=== PATIENT | female | born 1950 | race Caucasian/White ===

== ENCOUNTER 2018-09-24 11:09 | Emergency (ER) | payer OTHER ==
[2018-09-24 11:24] VITALS: TEMP 98.6
[2018-09-24 12:04] VITALS: BP 141/86; O2SAT 97
--- NOTE | 2018-09-24 12:12 | ED.PDOC ---
History of Present Illness - General Chief Complaint: Blood Pressure Problem Stated Complaint: elevated blood pressure (154/85) Time Seen by Provider: 09/24/18 11:22 Source: patient Exam Limitations: no limitations - History of Present Illness Initial Comments: the patient is a 68-year-old female presenting to the emergency room secondary to several symptoms which are probably mostly worsened by her recent anxiety. The patient woke up with a mild headache. She has had increased anxiety recently since she has just moved to town. She took some Tylenol and the headache is gone. However the time of the headache she did check her blood pressure and it was moderately elevated with systolics in the 150s. Initially she did have some reflux this morning while drinking her coffee. She does have known reflux issues but has not been on any medications for it for a while. She is not having any symptoms currently. The patient is obviously anxious. Blood pressures here are fairly normal. Headache is gone and reflux symptoms are gone. Timing/Duration: unsure Severity: mild Improving Factors: nothing Worsening Factors: nothing Associated Symptoms: other Allergies/Adverse Reactions: Allergies NO KNOWN ALLERGY Allergy (Verified 09/24/18 11:18) Home Medications: Ambulatory Orders Acetaminophen [Acetaminophen ER] 650 mg PO DAILY 09/24/18 Aspirin [Aspirin EC Low Dose] 81 mg PO DAILY 09/24/18 Atorvastatin Calcium 40 mg PO BEDTIME 09/24/18 Famotidine [Pepcid Tab] 20 mg PO BID #60 tab 09/24/18 Levothyroxine Sodium 112 mcg PO DAILY 09/24/18 Lisinopril & Hydrochlorothiazi [Lisinopril/Hctz 20-12.5 mg] 1 tab PO DAILY 09/24 Metoprolol Tartrate 50 mg PO DAILY 09/24/18 Review of Systems - Review of Systems Constitutional: States: no symptoms reported EENTM: States: no symptoms reported Respiratory: States: no symptoms reported Cardiology: States: no symptoms reported Gastrointestinal/Abdominal: States: see HPI Genitourinary: States: no symptoms reported Musculoskeletal: States: no symptoms reported Skin: States: no symptoms reported Neurological: States: anxiety, headache Endocrine: States: no symptoms reported All other Systems: No Change from Baseline Past Medical History (General) - Patient Medical History Hx Stroke: No Hx Cardiac Disorders: Yes Hx Congestive Heart Failure: No Hx Hypertension: Yes Hx Thyroid Disease: Yes Hx Diabetes: No Surgical History: appendectomy, cholecystectomy Family Medical History - Family History Mother Family History: No Known Physical Exam - Physical Exam General Appearance: Alert, Anxious, No apparent distress Eye Exam: bilateral normal Ears, Nose, Throat: hearing grossly normal, normal ENT inspection, normal pharynx Neck: full range of motion, supple Respiratory: lungs clear, normal breath sounds, no respiratory distress, no accessory muscle use Cardiovascular/Chest: normal peripheral pulses, regular rate, rhythm, no edema Peripheral Pulses: radial,right: 2+, radial,left: 2+, dorsalis pedis,right: 2+, dorsalis pedis,left: 2+ Gastrointestinal/Abdominal: non tender, soft Rectal Exam: deferred Back Exam: normal inspection, no CVA tenderness Extremity: normal range of motion, non-tender, normal inspection, no pedal edema , normal capillary refill 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 Blood pressures have largely normalized. Headache has dissipated after her Tylenol dosing. I'm going to place the patient on Pepcid twice daily for the next month for her gastritis issues. The patient is experiencing some mild increased anxiety related to a recent move. I would recommend that she get set up with Dr. Tom so that she has a primary care doctor here in town that can address her longer-term medical issues. ER warnings were given. Departure - Departure Clinical Impression: Anxiety, generalized, Tension headache Gastroesophageal reflux disease Qualifiers: Esophagitis presence: with esophagitis Qualified Code(s): K21.0 - Gastro- esophageal reflux disease with esophagitis Disposition: Discharge to Home or Self Care Condition: Fair Departure Forms: ED Discharge - Pt. Copy, Patient Portal Self Enrollment Instructions: DI for High Blood Pressure, Acid Reflux (Gastroesophageal Reflux Disease), Adult (DC) Diet: bland diet Activity: increase activity as tolerated Prescriptions: Famotidine [Pepcid Tab] 20 mg PO BID #60 tab Home Medications: Ambulatory Orders Acetaminophen [Acetaminophen ER] 650 mg PO DAILY 09/24/18 Aspirin [Aspirin EC Low Dose] 81 mg PO DAILY 09/24/18 Atorvastatin Calcium 40 mg PO BEDTIME 09/24/18 Famotidine [Pepcid Tab] 20 mg PO BID #60 tab 09/24/18 Levothyroxine Sodium 112 mcg PO DAILY 09/24/18 Lisinopril & Hydrochlorothiazi [Lisinopril/Hctz 20-12.5 mg] 1 tab PO DAILY 09/24 Metoprolol Tartrate 50 mg PO DAILY 09/24/18 Additional Instructions: the patient is a 68-year-old female presenting primarily due to mild elevation of her blood pressure this morning. Blood pressures have largely normalized. Headache has dissipated after her Tylenol dosing. I'm going to place the patient on Pepcid twice daily for the next month for her gastritis issues. The patient is experiencing some mild increased anxiety related to a recent move. I would recommend that she get set up with Dr. Tom so that she has a primary care doctor here in town that can address her longer-term medical issues. ER warnings were given.
== END 2018-09-24 12:10 | disposition home or self-care (01) ==
LOC: ER 11:09
DX: G44.209 Tension-type headache, unspecified, not intractable (principal); F41.9 Anxiety disorder, unspecified; K21.0 Gastro-esophageal reflux disease with esophagitis; I10 Essential (primary) hypertension; I51.9 Heart disease, unspecified; E07.9 Disorder of thyroid, unspecified; Z79.899 Other long term (current) drug therapy; Z79.82 Long term (current) use of aspirin

== ENCOUNTER 2019-02-10 10:34 | Observation (INO) | payer OTHER ==
[2019-02-10] MEDS ORDERED: NITROGLYCERIN 0.4 MG 25 EA TAB SL ONE (10:46)
[2019-02-10] MEDS ORDERED: SODIUM CHLORIDE 0.9% (FLUSH) 10 ML SYG IV PRN ×2 (10:46→17:07)
[2019-02-10] MEDS ORDERED: ASPIRIN TABLET 325 MG TAB PO ONE (10:46)
--- NOTE | 2019-02-10 11:10 | RAD ---
EXAM DESCRIPTION: Chest,1 View CLINICAL HISTORY: chest COMPARISON: None. IMPRESSION: Single AP portable upright view of the chest shows mild enlargement of the cardiac silhouette without pulmonary vascular congestion. Tortuosity the thoracic aorta is seen. Lungs are normally aerated and clear. No obvious pleural effusion or pneumothorax is seen. Electronically signed by: Rusty Robbins MD 02/10/2019 11:07 AM CDT
--- NOTE | 2019-02-10 12:16 | ED.PDOC ---
History of Present Illness - General Chief Complaint: Chest Pain/NH Stated Complaint: chest pain since 0630 Time Seen by Provider: 02/10/19 12:13 Source: patient - History of Present Illness Initial Comments: PT PRESENTS WITH COMPLAINT OF CHEST PAIN AND SOB UPON AWAKENING THIS AM. PT STATES THAT PAIN IS WORSE WITH DEEP INHALATION. SHE DENIES, RADIATION, NAUSEA, OR DIZZINESS. PT HAS HISTORY OF CAD WITH STENT PLACED SEVERAL YEARS AGO. SHE HAS NOT SEEN A CHILD'S NURSE RECENTLY. Timing/Duration: 4-6 hours Severity/Quality: moderate, aching Location: substernal Chest Pain Radiation: no radiation Activities at Onset: none Prior Chest Pain/Cardiac Workup: no prior chest pain, no prior cardiac workup Improving Factors: nothing Worsening Factors: nothing Nitro Today/Relief: no nitro taken today Aspirin Treatment Today: no aspirin today Associated Symptoms: denies symptoms Allergies/Adverse Reactions: Allergies NO KNOWN ALLERGY Allergy (Verified 02/10/19 10:41) Home Medications: Ambulatory Orders Acetaminophen [Acetaminophen ER] 650 mg PO DAILY 09/24/18 Aspirin [Aspirin EC Low Dose] 81 mg PO DAILY 09/24/18 Atorvastatin Calcium 40 mg PO BEDTIME 09/24/18 Famotidine [Pepcid Tab] 20 mg PO BID #60 tab 09/24/18 Levothyroxine Sodium 112 mcg PO DAILY 09/24/18 Lisinopril & Hydrochlorothiazi [Lisinopril/Hctz 20-12.5 mg] 1 tab PO DAILY 09/24/18 Metoprolol Tartrate 50 mg PO DAILY 09/24/18 Review of Systems - Review of Systems Constitutional: Denies: chills, fever EENTM: Denies: nose congestion, throat pain Respiratory: States: cough, short of breath Cardiology: States: chest pain. Denies: palpitations, syncope Gastrointestinal/Abdominal: Denies: diarrhea, nausea, vomiting Genitourinary: Denies: dysuria, frequency Musculoskeletal: Denies: joint pain, joint swelling Skin: Denies: dryness, lesions Neurological: Denies: headache, numbness Past Medical History (General) - Patient Medical History Hx Seizures: No Hx Stroke: No Hx Dementia: No Hx Asthma: No Hx of COPD: No Hx Cardiac Disorders: Yes - STENT X 1 Hx Congestive Heart Failure: No Hx Pacemaker: No Hx Hypertension: Yes Hx Thyroid Disease: Yes Hx Diabetes: No Hx Gastroesophageal Reflux: Yes Hx Renal Disease: No Hx Cancer: No Hx of HIV: No Hx Hepatitis C: No Hx MRSA: No Surgical History: Hysterectomy - Vaccination History Hx Tetanus, Diphtheria Vaccination: Yes Hx Influenza Vaccination: Yes Hx Pneumococcal Vaccination: Yes Immunizations Up to Date: Yes - Social History Hx Tobacco Use: No Hx Chewing Tobacco Use: No Hx Alcohol Use: No Hx Substance Use: No Hx Substance Use Treatment: No Hx Depression: No Feels Threatened In Home Enviroment: No Feels Threatened In a Relationship: No Hx Physical Abuse: No Hx Emotional Abuse: No Hx Suspected Abuse: No - Female History Patient is a Female of Child Bearing Age (10 -59 yrs old): No Patient : No Family Medical History - Family History Mother Family History: No Known Living Status: Hx Family Asthma: No Hx Family Congestive Heart Failure: No Physical Exam - Physical Exam General Appearance: Alert, No apparent distress, Well Developed, Well Groomed, Well Hydrated Eyes, Ears, Nose, Throat Exam: normal ENT inspection Neck: full range of motion, supple, normal inspection Respiratory: lungs clear, normal breath sounds, no respiratory distress Cardiovascular/Chest: regular rate, rhythm, no murmur Gastrointestinal/Abdominal: non tender, soft Extremity: normal inspection, no pedal edema Neurologic: alert, normal mood/affect, oriented x 3 Skin Exam: normal color, warm/dry Progress - Progress Progress: 02/10/19 13:44 PT RESTING COMFORTABLY, STATES PAIN HAS RESOLVED AFTER 2 SL NTG. LABS AND DIAGNOSTICS DISCUSSED. - Results/Orders Results/Orders: Laboratory Tests 02/10/19 02/10/19 10:50 11:45 WBC 7.1 RBC 4.60 Hgb 14.2 Hct 42.2 MCV 91.6 MCH 30.9 MCHC 33.7 RDW 13.5 Plt Count 235 MPV 7.3 L Absolute Neuts (auto) 3.40 Absolute Lymphs (auto) 2.70 Absolute Monos (auto) 0.60 Absolute Eos (auto) 0.30 Absolute Basos (auto) 0.10 Neutrophils % 48.3 Lymphocytes % 37.9 Monocytes % 8.8 Eosinophils % 4.1 Basophils % 0.9 PT 10.1 INR 1.01 PTT (SP) 28.1 Sodium 140 Potassium 3.3 L Chloride 103 Carbon Dioxide 24 Anion Gap 16.3 BUN 16 Creatinine 0.68 BUN/Creatinine Ratio 23.5 H Random Glucose 94 Serum Osmolality 280.3 Calcium 9.6 Magnesium 2.1 Creatine Kinase 119 CK-MB (CK-2) 2.9 CK-MB (CK-2) % 2.44 Troponin I < 0.02 B-Natriuretic Peptide 52.3 Urine Color Yellow Urine Appearance Clear Urine pH 7.0 Ur Specific [place] 1.010 Urine Protein Negative Urine Glucose (UA) Negative Urine Ketones Negative Urine Blood Small H Urine Nitrite Negative Urine Bilirubin Negative Urine Urobilinogen 0.2 Ur Leukocyte Esterase Trace H Urine RBC 1-3 Urine WBC 0-1 Ur Epithelial Cells 1-3 Urine Bacteria Rare - EKG/XRAY/CT EKG: Sinus - @72BPM, INCOMPLETE RBBB, LAD, GOOD R WAVE PROGRESSION, no ST T wave changes, Unchanged from - 09/24/18 Departure - Departure Clinical Impression: Chest pain, Dyspnea Time of Disposition: 13:45 Disposition: Admit Patient Condition: Good Departure Forms: ED Discharge - Pt. Copy, Patient Portal Self Enrollment Instructions: DI for Chest Pain Home Medications: Ambulatory Orders Acetaminophen [Acetaminophen ER] 650 mg PO DAILY 09/24/18 Aspirin [Aspirin EC Low Dose] 81 mg PO DAILY 09/24/18 Atorvastatin Calcium 40 mg PO BEDTIME 09/24/18 Famotidine [Pepcid Tab] 20 mg PO BID #60 tab 09/24/18 Levothyroxine Sodium 112 mcg PO DAILY 09/24/18 Lisinopril & Hydrochlorothiazi [Lisinopril/Hctz 20-12.5 mg] 1 tab PO DAILY 09/24/18 Metoprolol Tartrate 50 mg PO DAILY 09/24/18 Decision To Admit - Decistion To Admit Decision to Admit Reason: Admit from ER Decision to Admit Date: 02/10/19 Decision to Admit Time: 13:46 - CASE DISCUSSED WITH GRISEL BRIONES NP WHO AGREES TO ADMIT
[2019-02-10] MEDS ORDERED: NITROGLYCERIN 0.4 MG 25 EA TAB SL PRN (17:07)
[2019-02-10] MEDS ORDERED: ACETAMINOPHEN 325 MG TAB PO PRN (17:07)
[2019-02-10] MEDS ORDERED: MORPHINE SULFATE INJ 10 MG/ML VIAL IV PRN (17:07)
[2019-02-10] MEDS ORDERED: ALPRAZolam 0.25 MG TAB PO PRN (17:24)
[2019-02-10] MEDS ORDERED: IV SET AND CAP CHANGE INJ INJ SCH (17:30)
[2019-02-10] MEDS ORDERED: ATORVASTATIN 20 MG TAB PO ONE (19:17)
[2019-02-10] MEDS ORDERED: NON-FORMULARY MEDICATION 1 EA MIS (Atorvastatin Calcium [Atorvastatin Calcium] 40 MG) PO SCH (21:00)
[2019-02-10] MEDS ORDERED: ENOXAPARIN SODIUM 40 MG/0.4 ML SYG SUBCU SCH (21:00)
[2019-02-10] MEDS: SODIUM CHLORIDE 0.9% (FLUSH) 10 ML SYG IV SCH (22:01)
[2019-02-11] MEDS ORDERED: PANTOPRAZOLE SODIUM IV 40 MG VIAL IV SCH (06:30)
[2019-02-11 06:48] VITALS: O2SAT 94
[2019-02-11] MEDS ORDERED: LEVOTHYROXINE SODIUM 0.112 MG TAB PO SCH (07:00)
[2019-02-11] MEDS ORDERED: METOPROLOL TARTRATE 50 MG TAB PO SCH (07:30)
[2019-02-11] MEDS: SODIUM CHLORIDE 0.9% (FLUSH) 10 ML SYG IV SCH (08:33)
[2019-02-11] MEDS ORDERED: ASPIRIN (ENTERIC COATED) 81 MG TAB PO SCH (09:00)
[2019-02-11] MEDS ORDERED: NON-FORMULARY MEDICATION 1 EA MIS (Lisinopril & Hydrochlorothiazi [Lisinopril/Hctz 20-12.5 PO SCH (09:00)
[2019-02-11] MEDS ORDERED: LISINOPRIL 10 MG TAB PO SCH (09:00)
[2019-02-11] MEDS ORDERED: hydroCHLOROthiazide 12.5 MG CAP PO SCH (09:00)
[2019-02-11 10:15] VITALS: BP 130/86; TEMP 98.2
[2019-02-11] MEDS ORDERED: ATORVASTATIN 20 MG TAB PO SCH (21:00)
--- NOTE | 2019-02-16 19:54 | SSS ---
SUPERVISING PHYSICIAN: Jt Schmitz M.D. DISCHARGE DIAGNOSES: 1. Chest pain rule out myocardial infarction. 2. Hypertension. 3. Hypothyroidism. 4. Coronary artery disease with a history of a stent. HISTORY OF PRESENT ILLNESS: This is a 68 year-old female patient who came to the Emergency Room with complaints of chest pain. They started early that morning and they actually awakened her during the night. She said there was no radiation. She had no diaphoresis, but it was worse with inspiration. She said it continued for several hours. She had no nausea or vomiting. She has a history of coronary artery disease and had a stent placed a couple of years ago in the Emergency Room. She does have a supervising producer but has not seen him in about a year. She does have an appointment with him in March. In the Emergency Room, her CBC was unremarkable. Coagulation studies were unremarkable. Initial set of cardiac enzymes were negative as well as the subsequent cardiac enzymes. Electrolytes were within normal limits with the exception of her potassium was slightly low at 3.3. Urinalysis was unremarkable. Chest x-ray, single AP portable upright view of the chest showed mild enlargement of the cardiac silhouette without pulmonary vascular congestion. Tortuosity of the thoracic aorta is seen. Lungs are normally aerated and clear. No obvious pleural effusion or pneumothorax seen. She was given some Nitroglycerin sublingually times 2. The chest pain subsided and I was called for admission to the hospital to observe for chest pains. PAST MEDICAL HISTORY: 1. Hypertension. 2. Coronary artery disease with stent placement. 3. Hypothyroidism. 4. Gastroesophageal reflux disease. PAST SURGICAL HISTORY: 1. Stent times 1. 2. Hysterectomy. CURRENT MEDICATIONS: Per the medical record. ALLERGIES: NO KNOWN DRUG ALLERGIES. FAMILY HISTORY: Positive for coronary artery disease, asthma. SOCIAL HISTORY: She denies smoking, ETOH or illicit drug use. REVIEW OF SYSTEMS: Negative except as per History of Present Illness. PHYSICAL EXAMINATION: VITAL SIGNS: Temperature 97.8, heart rate 63, blood pressure 133/74, respiratory rate 18, O2 sat 94% on room air. GENERAL: This is a 68 year-old female patient who is lying in her hospital bed. She is in no acute distress. HEENT: Normocephalic and atraumatic. Pupils are equal and reactive. Oropharynx is clear. NECK: Supple without mass. There is no discernible jugular venous distention. RESPIRATORY: Essentially clear to auscultation bilaterally. CARDIOVASCULAR: Regular rate and rhythm. GASTROINTESTINAL: Abdomen is soft, nondistended, non-tender. Bowel sounds are positive. EXTREMITIES: No clubbing, cyanosis or edema. NEUROLOGIC: She is awake, alert and oriented times three. Cranial nerves II- XII are grossly intact. SKIN: Warm and dry. DISCHARGE PLAN: The patient will be discharged home in stable condition. Her serial cardiac enzymes were all negative. Subsequent lab was unremarkable. She is to call her PCP for a followup appointment as well as calling her supervising producer and she might want to move her appointment up in March. She is to resume her previous activity as tolerated as well as her previous diet. All of her previous medicines are to be restarted. There have been no new medications started. She is to return to the hospital or call her physician's office for any problems or complications. DISCHARGE MEDICATIONS: 1. Levothyroxine. 2. Atorvastatin. 3. Lisinopril/Hydrochlorothiazide. 4. Acetaminophen. 5. Metoprolol. #[id number] [facility]
== END 2019-02-11 12:25 | disposition home or self-care (01) ==
LOC: ER 10:34 → MS 15:05 → INTOOBSV 15:05
PROVIDERS: ADMIT Nurse Practitioner Acute Care; ATTEND Nurse Practitioner Acute Care
DX: R07.2 Precordial pain (principal); R06.02 Shortness of breath; I10 Essential (primary) hypertension; E03.9 Hypothyroidism, unspecified; I25.10 Atherosclerotic heart disease of native coronary artery without angina pectoris; K21.9 Gastro-esophageal reflux disease without esophagitis; I45.10 Unspecified right bundle-branch block; Z95.5 Presence of coronary angioplasty implant and graft; Z79.82 Long term (current) use of aspirin; Z79.890 Hormone replacement therapy; Z79.899 Other long term (current) drug therapy; Z82.49 Family history of ischemic heart disease and other diseases of the circulatory system
CPT/HCPCS: 96374; 96372; J1650; 80048 ×2; 82553 ×4; 80061; 36415; 82550 ×4; 85025 ×2; 85730; 85610; 84484 ×5; 81001; 83880; 71045; 99285; 93005 ×4; G0378

== ENCOUNTER 2019-06-30 04:09 | Emergency (ER) | payer OTHER ==
[2019-06-30 07:59] VITALS: BP 134/79; O2SAT 95
== END 2019-06-30 07:50 | disposition home or self-care (01) ==
LOC: ER 04:09
DX: I20.9 Angina pectoris, unspecified (principal); I51.9 Heart disease, unspecified; Z95.5 Presence of coronary angioplasty implant and graft; I10 Essential (primary) hypertension; E07.9 Disorder of thyroid, unspecified; K21.9 Gastro-esophageal reflux disease without esophagitis; Z85.850 Personal history of malignant neoplasm of thyroid; Z79.82 Long term (current) use of aspirin; Z79.899 Other long term (current) drug therapy

== ENCOUNTER → 2019-07-12 | Outpatient (CLI) | payer MEDICARE ==
--- NOTE | 2019-07-13 13:56 | US ---
EXAM DESCRIPTION: Gall Bladder: ULTRASOUND. CLINICAL HISTORY: GASTROESOPHAGEAL REFLUX COMPARISON: Ultrasound of the thyroid and chest CT scan on the same visit. TECHNIQUE: Transabdominal scanning: Beard-scale and Doppler modes. FINDINGS: Gallbladder: normal size, shape, echogenicity; no intraluminal stones or sludge. No fluid around the gallbladder. No wall thickening. 2.0 mm. Non-tender with transducer pressure. Common bile duct: caliber 4.0 mm within normal limits. Liver: Increased echogenicity; contour liver capsule smooth where seen. No fluid around the liver. Intrahepatic biliary ducts normal caliber. Normal caliber portal vein.. Long axis right lobe 19.2 cm. Pancreas: normal size and echogenicity. Duct not seen. Aorta: not scanned. Right kidney: 11.1 x 7.1 x 4.0 cm. Normal cortical echogenicity. Cortical thickness 10 mm. No hydronephrosis, no echogenic stones, and no perirenal fluid.. IMPRESSION: Mild hepatomegaly with steatosis. Normal caliber of the portal vein and ducts. Smooth capsule with no ascites. Gallbladder, common bile duct, pancreas, are unremarkable. Minimal cortical thinning in the right kidney most likely related to aging but otherwise negative. Electronically signed by: Anderson Meredith MD 07/13/2019 1:54 PM CDT
--- NOTE | 2019-07-13 16:55 | CT ---
EXAM DESCRIPTION: Chest w/o Contrast : Computed Tomography. CLINICAL HISTORY: 69 years Female COUGH COMPARISON: Ultrasound of the thyroid and gallbladder on this visit. TECHNIQUE: Spiral-axial scans at 5.0 mm intervals through the lungs and thorax without IV contrast. 2.5 x 5.0 mm lung algorithm axial reconstructions. Coronal and sagittal 2.0 Mm reconstructions. Total Exam DLP: 564.36 mGy-cm. This exam was performed according to our departmental dose-optimization program which includes automated exposure control, adjustment of the mA and/or kV according to patient size and/or use of iterative reconstruction technique; to reduce radiation dose to as low as reasonably achievable (ALARA). Nodule measurements under 10 mm are given as mean value of 3 axes diameters. FINDINGS: Lungs and large airways: 4.7 mm solid nodule in the subpleural lateral left lower lobe on axial series 4, image 85. Larger soft tissue mass mostly circumscribed margins and minimal lobulation in the posterior upper lingula of the left upper lobe measuring 8.6 mm on image 4/52. Subpleural and anterior to the left major fissure. Bilateral pleural-parenchymal scars in the lower lobes and minimal dependent atelectasis. Minimal peribronchial thickening. No larger nodules or masses. No focal infiltrate. Pleural spaces: Calcifications in the base of the right pleura abutting the liver. No effusion or pneumothorax. Mediastinum and Kimberly: Evaluation limited due to lack of IV contrast small nodes in the mediastinum and bilateral kimberly with no dominant masses. Great vessels and Heart: Evaluation limited due to lack of IV contrast. Atherosclerotic calcifications and stents in the coronary vessels and atherosclerotic calcifications. Calcified vessels and thoracic aorta. Soft tissues of neck base, axillae, and chest wall: Evaluation limited due to lack of IV contrast. No tissue in the right thyroid bed. Please see thyroid ultrasound report. Normal size and appearance of bilateral axillary nodes. Upper abdomen: No fluid or free air in the included peritoneal space. Numerous calcifications in the spleen. Gallbladder partially visualized. On the inferior margin of the study, there is a vague area of low-density in the subcapsular right lobe partially imaged, measuring 3.6 x 3.6 cm on image 2/63. Osseous structures: Negative. IMPRESSION: 1. 4.7 mm subpleural solid nodule lateral left lower lobe. 8.6 mm solid subpleural nodule lateral left upper lobe lingula. Small lymph nodes in the mediastinum. Partially visualized right lateral hepatic lobe subcapsular mass measuring 3.6 cm. Differential includes primary lung neoplasm with metastasis to liver. Primary liver inflammatory versus malignant lesion. Other primary neoplasm with metastasis to liver and lung. Consider follow-up CT scan of the abdomen and pelvis without and with IV contrast, and oral contrast.. Electronically signed by: Anderson Meredith MD 07/13/2019 4:53 PM CDT
== END ==
LOC: LAB.O 11:42
PROVIDERS: ATTEND Family Medicine
DX: K21.9 Gastro-esophageal reflux disease without esophagitis (principal); K76.0 Fatty (change of) liver, not elsewhere classified; K76.9 Liver disease, unspecified; R91.1 Solitary pulmonary nodule; R05 Cough; E03.9 Hypothyroidism, unspecified; I10 Essential (primary) hypertension

== ENCOUNTER → 2019-07-19 | Outpatient (CLI) | payer MEDICARE ==
--- NOTE | 2019-07-20 09:45 | CT ---
EXAM DESCRIPTION: Abdomen/Pelvis w/wo Contrast: Computed Tomography. CLINICAL HISTORY: MULTIPLE ABNORMAL NODULES OF LUNG. Liver mass prior CT chest COMPARISON: CT scan of the chest without IV contrast September 11, 2019. TECHNIQUE: Spiral-axial scans at 2.5 mm intervals through the abdomen and pelvis before and after 75 mL Optiray 320 nonionic IV contrast. Oral Gastrografin contrast. [id number] scans at 30 seconds, 60 seconds. No oral contrast. Coronal and sagittal 2.0 mm reconstructions. 7 minute 5 mm Delayed helical-axial scans, liver through the pubic symphysis. No adverse reactions. Total Exam DLP 3188 mGy - cm. This exam was performed according to our departmental CT dose-optimization program which includes automated exposure control, adjustment of the mA and/or kV according to patient size and/or use of iterative reconstruction technique; to reduce radiation dose to as low as reasonably achievable (ALARA). FINDINGS: Lung bases and pleura: Mosaic parenchymal densities bilateral basilar. Minimal pleural thickening. Calcification posterior tail of the left hemidiaphragm. Liver, Stomach, Spleen, Adrenal Glands: Ill-defined subcapsular mass in the right lateral liver measuring 4.9 x 3.3 x 2.5 cm. No calcifications. Enhancing vessels in the periphery but still visible on the 7 minute delayed images. No other focal liver lesions, no calcifications in the spleen. Enhancing lesions. Pancreas, Gallbladder, Ducts: Radiodense stone in the fundus of the gallbladder versus calcification in the wall. Kidneys and Ureters: 2 cm cyst abutting the lower collecting system of the left kidney. Smaller cortical cysts bilaterally. Small lymph nodes abutting the right perirenal space.. Mesentery: Unremarkable. Aorta: Moderate atherosclerotic calcification normal caliber of the outer wall, minimal luminal narrowing distally. Small Bowel: Mostly filled with oral contrast. Normal caliber. Terminal Ileum/Cecum: Normal caliber. Part of the cecum is between the lateral abdominal wall in the inferior tip of the right lobe of the liver. Appendix not seen. No inflammatory changes. Small lymph nodes in the region. Colon: Mostly decompressed. Minimal diverticula distally. Oral contrast proximal third of the colon. Hepatic flexure between the anterior abdominal wall in the left lobe of the liver. Splenic flexure medial to the anterior spleen anterior to the splenic hilum. Minimal distention of the rectosigmoid with fecal matter. No complications. Pelvic Organs: Thickened bladder wall with minimal distention. Vaginal cuff negative. Ovaries not seen. No fluid in the cul-de-sac. Spine and Bony Pelvis: Broad lumbar dextroscoliosis. Decreased bone density. Minimal narrowing bilateral hip joints. Degenerative gas formation bilateral SI joints. Abdominal Wall/Back Soft Tissues: Small fatty containing left inguinal hernia with no bowel. Minimal diastases umbilicus fat only. IMPRESSION: 1. 4.9 x 3.3 x 2.5 cm mass in the subcapsular right hepatic lobe with no significant change in size in all phases of the CT scan without and with IV contrast. This could represent an atypical hemangioma. Consider follow-up MRI scan without and with gadolinium IV contrast. If MRI scan results equivocal, consider percutaneous biopsy of the liver mass. 2. Radiodense stone in the fundus of the gallbladder versus wall calcification. 2 cm cyst left kidney. Thickened urinary bladder wall; could indicate cystitis. 3. Unusual anatomic positioning of segments of the colon. Minimal diverticulosis sigmoid colon. No complications. Small fatty containing left inguinal hernia, no bowel. Small mesenteric lymph nodes around the right perirenal space and the terminal ileum and cecum. No inflammatory changes. Electronically signed by: Anderson Meredith MD 07/20/2019 9:43 AM CDT
== END ==
LOC: LAB.O 08:19
PROVIDERS: ATTEND Family Medicine
DX: R91.8 Other nonspecific abnormal finding of lung field (principal); K76.9 Liver disease, unspecified; N28.1 Cyst of kidney, acquired; N32.9 Bladder disorder, unspecified; K57.30 Diverticulosis of large intestine without perforation or abscess without bleeding; K40.90 Unilateral inguinal hernia, without obstruction or gangrene, not specified as recurrent

== ENCOUNTER → 2019-07-26 | Outpatient (CLI) | payer MEDICARE ==
--- NOTE | 2019-07-27 16:10 | US ---
US THYROID CLINICAL STATEMENT: HYPOTHYROIDISM.. Previous thyroidectomy COMPARISON: CT scan the chest 07/12/2019. No tissue right thyroid. TECHNIQUE: Transcutaneous scanning, grayscale and Doppler modes. FINDINGS: Size right thyroid lobe: No tissue. Size left thyroid lobe: 3.1 x 1.6 x 1.5 cm Size isthmus: No tissue. Estimated total number of nodules greater than or equal to 1 cm: None. No nodules or cysts seen in the right lobe. No lobe is heterogeneously low-density. Wider than tall orientation minimal posterior acoustic enhancement and decreased vascularity. No soft tissue mass or fluid in the right thyroid bed. Soft tissue around the thyroid gland is unremarkable. IMPRESSION: 1. Previous right thyroidectomy. Diffuse low-density tissue representing the left thyroid lobe. Minimal vascularity. This could represent hypofunctioning tissue, large nodule, or fibrosis. 2. Consider radionuclide I-123 thyroid imaging and/or ultrasound-guided fine-needle aspiration and sampling of left thyroid lobe. 3. No masses around the thyroid gland. *ACR TI-RADS 2017 Recommendations for imaging follow-up of nodules: TR1: No FNA or follow up TR2: No FNA or follow up TR3: FNA if >/= 2.5 cm, follow up if 1.5 - 2.4 cm in 1, 3, and 5 years TR4: FNA if >/= 1.5 cm, follow up if 1.0 - 1.4 cm in 1, 2, 3, and 5 years TR5: FNA if >/= 1.0 cm, follow up if 0.5 - 0.9 cm every year for 5 years ACR TI-RADS recommends that no more than two nodules with the highest ACR TI-RADS total point should be biopsied and no more than four nodules should be followed. These recommendations do not apply to patients with increased risk for thyroid cancer or patients with symptomatic thyroid disease. Electronically signed by: Anderson Meredith MD 07/27/2019 4:08 PM CDT
== END ==
LOC: US 11:33
PROVIDERS: ATTEND Family Medicine
DX: E03.9 Hypothyroidism, unspecified (principal); Z90.89 Acquired absence of other organs

== ENCOUNTER → 2019-08-16 | Outpatient (CLI) | payer MEDICARE | LOC: LAB.O 10:25 | PROVIDERS: ATTEND Internal Medicine Gastroenterology | DX: K76.9 Liver disease, unspecified (principal); K68.9 Other disorders of retroperitoneum; R93.2 Abnormal findings on diagnostic imaging of liver and biliary tract; I10 Essential (primary) hypertension ==

== ENCOUNTER 2019-08-17 05:29 | Day surgery (SDC) | payer MEDICARE ==
[2019-08-17] MEDS ORDERED: LACTATED RINGERS 1,000 ML ONE (07:42)
[2019-08-17] MEDS: LACTATED RINGERS 1,000 ML IVS ONE (11:30)
[2019-08-17] MEDS ORDERED: MIDAZOLAM INJ 2 MG/2 ML VIAL ONE (12:34)
--- NOTE | 2019-08-17 13:49 | OP ---
DATE OF PROCEDURE: 08/17/19 PREOPERATIVE DIAGNOSIS: 1. Heartburn. 2. Chronic left upper quadrant pain. 3. Need for colonoscopy. POSTOPERATIVE DIAGNOSIS: 1. Heartburn. 2. Chronic left upper quadrant pain. 3. Need for colonoscopy. PROCEDURE: 1. EGD with biopsy times 2 with 3 to 4 mm apparent healed ulcer seen. 2. Colonoscopy, unable to traverse passed 30 cm in 40 minutes. Three polyps in the sigmoid were biopsied. SURGEON: Hong Genao MD ANESTHESIA: General. COMPLICATIONS: None. ESTIMATED BLOOD LOSS: Minimal. CONDITION: Stable. PLAN: Discharge. INDICATION: As stated. PROCEDURE: In the lateral position, head up and a bite block in place, the EGD was performed. The esophagus was entered without difficulty on through to the stomach. There was some evidence of gastritis in the antrum. Biopsy was taken. The duodenum was intubated without difficulty to the distal second and proximal third portion with no evidence of ulcers or abnormalities of the duodenum. Upon withdrawal, a biopsy was done and on further examination, there was a small apparent healed ulcer or beginning ulcer, uncertain if it was a malignancy, so a biopsy right in the edge and middle of this was taken. It was only about 3 mm. Otherwise, everything looked normal. The GE junction appeared normal. There was a small hiatal hernia. The remainder of the esophagus appeared normal. She tolerated the procedure. The bed was then turned. She was laid lateral for colonoscopy. We traversed the sigmoid and found a polyp. We were going to advance further when passed it, but we could not get passed. At that time, we then biopsied one with a snare, about a 3.5 to 4 mm polyp, and two other 2 mm polyps were taken with forceps. There were 3 in the sigmoid. We continued to try to advance that point on multiple attempts, also putting the patient on her back. We were just unable to get passed approximately 30 cm of the colon. We will review this with her and decide our next step there, but there was no significant bleeding. The scope was withdrawn. She was awakened and taken to Recovery to be discharged. #[id number] [facility]
[2019-08-17 13:53] VITALS: BP 112/66; TEMP 97.3; O2SAT 91
== END 2019-08-17 14:25 | disposition home or self-care (01) ==
LOC: AMB 05:29
PROVIDERS: ATTEND Surgery
DX: Z12.11 Encounter for screening for malignant neoplasm of colon (principal); K63.5 Polyp of colon; K29.50 Unspecified chronic gastritis without bleeding; K21.9 Gastro-esophageal reflux disease without esophagitis; I10 Essential (primary) hypertension; E78.5 Hyperlipidemia, unspecified; I25.10 Atherosclerotic heart disease of native coronary artery without angina pectoris; Z90.710 Acquired absence of both cervix and uterus; Z95.5 Presence of coronary angioplasty implant and graft; Z96.659 Presence of unspecified artificial knee joint; Z87.891 Personal history of nicotine dependence; Z79.82 Long term (current) use of aspirin; Z79.899 Other long term (current) drug therapy
CPT/HCPCS: 00813; 43239; 45380; 45385; 88305; 88342; J2250; J7120

== ENCOUNTER → 2019-08-21 | Outpatient (CLI) | payer MEDICARE ==
--- NOTE | 2019-08-22 15:12 | NM ---
EXAM DESCRIPTION: Thyroid Uptake Scan CLINICAL HISTORY: E04.1. Previous thyroidectomy. Abnormal appearance of the left thyroid lobe on ultrasound. COMPARISON: Ultrasound of the thyroid [address] scan of the chest with IV contrast 12 July 2019. TECHNIQUE: Patient was given 214 uCi of iodine 123 radiopharmaceutical orally. Percentage of activity in the thyroid gland was measured at 6 hrs. Activity was again measured at 24 hr. Anterior posterior and anterior bilateral oblique images of the thyroid gland with a gamma camera. FINDINGS: 6 hour uptake in the thyroid gland was 0.8% which is significantly below normal range. 24-hour uptake 0.4%, significantly below normal range. Trace amount of activity seen in the approximate location of the thyroid gland between the skin in the manubrial notch which are indicated by markers. IMPRESSION: Hypofunctioning residual left thyroid lobe with possible large hypofunctioning nodule. Long axis was 3.1 cm on previous ultrasound. Consider ultrasound-guided fine-needle aspiration sampling of left thyroid gland/nodule. Electronically signed by: Anderson Meredith MD 08/22/2019 3:10 PM CDT
== END ==
LOC: EDSTATUS 08:00 → NM 09:10
PROVIDERS: ATTEND Family Medicine
DX: E04.1 Nontoxic single thyroid nodule (principal)
CPT/HCPCS: 78012; A9516

== ENCOUNTER → 2019-08-24 | Outpatient (CLI) | payer MEDICARE ==
--- NOTE | 2019-08-25 07:51 | MRI ---
CLINICAL HISTORY PROVIDED: OTHER SPECIFIED DISEASES OF LIVER TECHNIQUE: Multiplanar, multisequence MR images of the abdomen. Images were obtained before and after the use of IV contrast. COMPARISON: July 19, 2019 FINDINGS: The gallbladder is unremarkable. No biliary dilatation. The portal vein is patent. No suspicious hepatic lesion identified. Normal hepatic parenchymal are normal in morphology. Right hepatic lobe lesion: Benign hepatic hemangioma measuring 4.4 x 3.7 cm. There is peripheral nodular discontinuous enhancement, appreciable by MRI. No suspicious features identified. No follow-up indicated. Left hepatic lobe lesion: Hepatic segment five smaller benign hepatic hemangioma measuring 9 mm series 1201 Image 63. No follow-up indicated. The spleen, pancreas and adrenal glands are unremarkable. Bilateral renal cysts. No hydronephrosis. Symmetric renal parenchymal enhancement. No adenopathy. No fluid collection. No evidence of bowel obstruction. No focal marrow signal abnormality. IMPRESSION: Benign hepatic hemangiomas. No suspicious liver lesion identified. Electronically signed by: Mariano Sage MD 08/25/2019 7:49 AM CDT
== END ==
LOC: LAB.O 08:58
PROVIDERS: ATTEND Internal Medicine Gastroenterology
DX: K76.89 Other specified diseases of liver (principal); D18.03 Hemangioma of intra-abdominal structures; I10 Essential (primary) hypertension

== ENCOUNTER → 2019-09-08 | Outpatient (CLI) | payer MEDICARE ==
--- NOTE | 2019-09-08 10:01 | NM ---
EXAM DESCRIPTION: Hepatobiliar w/CCK CLINICAL HISTORY: Abdominal pain COMPARISON: MR abdomen dated August 24, 2019 TECHNIQUE: Routine hepatobiliary scan was performed following intravenous administration of 30.5 mCi technetium 99m Choletec. Slow intravenous infusion of 2.0 mcg sincalide was used to stimulate gallbladder contraction. FINDINGS: Hepatobiliary scan shows prompt accumulation of the radiopharmaceutical within the liver and excretion into the biliary ductal system, gallbladder, and small bowel. Gallbladder ejection fraction is assessed following slow intravenous infusion of sincalide. Patient reports nausea and cramping during sincalide infusion. Gallbladder ejection fraction is calculated up to 84%. IMPRESSION: 1. Visualization of the gallbladder essentially excludes acute cholecystitis. 2. Normal gallbladder ejection fraction at 84% (normal range is greater than 35%). 3. Patient reports nausea and cramping during sincalide infusion. Electronically signed by: Ryley Mejia MD 09/08/2019 10:00 AM PUBLIC SPEAKING TEACHER
== END ==
LOC: NM 07:53
PROVIDERS: ATTEND Family Medicine
DX: R10.13 Epigastric pain (principal)
CPT/HCPCS: 78227; A9537

== ENCOUNTER → 2019-09-12 | Outpatient (CLI) | payer MEDICARE ==
--- NOTE | 2019-09-12 10:06 | US ---
Thyroid Biopsy, Image-Guided: Ultrasound CLINICAL INFORMATION: Prior right thyroidectomy. Decreased function of the left lobe on I-123 thyroid imaging. Abnormal findings on neck CT scan in thyroid ultrasound. TECHNIQUE: Procedure was explained to the patient with risks and benefits. The patient gave verbal and written consent. Sterile preparation draping. 1% xylocaine dermal anesthetic 9-1 mixture with sodium bicarbonate. Sterile ultrasound guidance. A total of 6 passes into left thyroid nodule; 3 needle samplings with a separate 1.5 inch, 25-gauge needle per sample, and 3 aspirations, with a separate 1.5 inch, 25-gauge needle/10-cc syringe set, per aspiration. Each sample was placed on a separate slide and fixed in 95% alcohol container. Saccomanno fluid drawn into aspirate needle and rinse injected into Saccomanno container. Specimens to be sent for pathologic examination at remote facility. . Patient tolerated procedure well. Biopsy #: 1 Nodule reference number based on prior diagnostic ultrasound:other. Nodule occupying most of the left lobe Maximum size: 3.1 cm Location: left; mid ACR TI-RADS risk category: TR4 (4-6 points) Reason for biopsy: meets ACR TI-RADS criteria Complications: None. IMPRESSION: Successful ultrasound guided fine needle aspiration of left thyroid nodule. ACR TI-RADS Risk Category TR 4 Electronically signed by: Anderson Meredith MD 09/12/2019 10:04 AM LAB ASSISTANT
== END ==
LOC: US 08:06
PROVIDERS: ATTEND Family Medicine
DX: E04.1 Nontoxic single thyroid nodule (principal)

== ENCOUNTER → 2019-10-04 | Outpatient (CLI) | payer MEDICARE | LOC: LAB.O 10:03 | PROVIDERS: ATTEND Family Medicine | DX: E06.3 Autoimmune thyroiditis (principal) ==

== ENCOUNTER → 2019-11-15 | Outpatient (CLI) | payer MEDICARE | LOC: YCFC.O 16:44 | PROVIDERS: ATTEND Family Medicine | DX: L72.3 Sebaceous cyst (principal) ==

== ENCOUNTER → 2020-02-20 | Outpatient (CLI) | payer MEDICARE ==
--- NOTE | 2020-02-21 13:21 | US ---
EXAM DESCRIPTION: Soft Tissue,Extremity: ULTRASOUND. CLINICAL HISTORY: 69 years Female INGUINA PAIN LEFT PELVIC AND PERINEAL COMPARISON: CT scan abdomen and pelvis July 2019. TECHNIQUE: Transcutaneous scanning: Beard-scale and Doppler modes. Left inguinal canal. FINDINGS: Small, left fatty collection in the upper left inguinal canal. No dominant solid mass. No abnormal vascularity. No distinct cyst or calcifications. No definite bowel or peristalsis was seen. IMPRESSION: Fatty solid tissue in the proximal left inguinal canal representing a static hernia with no peristalsis or fluid collections seen. Electronically signed by: Anderson Meredith MD 02/21/2020 1:19 PM CDT
--- NOTE | 2020-02-21 17:11 | MAM ---
EXAM DESCRIPTION: 3D Screening BILATERAL : Digital Mammography. CLINICAL HISTORY: 69 years Female ANNUAL SCREENING . No complaints. Female sibling with breast cancer unknown age. No personal history of breast cancer. Menarche age 15. Childbirth age 17. Premenopausal? No HRT.. Lifetime risk of developing breast cancer (Tyrer-Cuzick model)(%): 9.3. COMPARISON: Baseline study at this facility. No prior reports available. TECHNIQUE: Bilateral CC and MLO projection full-field images, digital tomosynthesis mammographic technique. Bilateral digital 2-D full-field MLO images. CAD available for 2-D images. FINDINGS: The breast parenchymal density pattern is: Scattered areas of fibroglandular density. No skin thickening or nipple retraction. Skin mole markers. Vascular calcifications. Solitary microcalcifications. No new focal, stellate mass or density, focal asymmetry , and no suspicious microcalcifications bilaterally. IMPRESSION: Benign exam. BIRAD CATEGORY: 2 BENIGN FINDINGS. RECOMMENDATIONS: FOLLOW UP: Routine digital bilateral mammographic screening, one year interval from January 2020. Written communication explaining the IMPRESSION and follow-up, will be mailed to the patient and referring health care provider. According to the [employer], yearly mammograms are recommended starting at age 40 and continuing as long as a woman is in good health. Any breast change noted on a breast self-exam should be reported promptly to the patient's healthcare provider. Breast MRI is recommended for women with an approximately 20-25% or greater lifetime risk of breast cancer, including women with a strong family history of breast or ovarian cancer and women who have been treated for Hodgkin's disease. A negative mammographic report should not delay tissue diagnosis in patients with significant clinical history or physical findings. Extremely dense breast tissue limits the sensitivity of digital mammography. Electronically signed by: Anderson Meredith MD 02/21/2020 5:10 PM CDT
== END ==
LOC: MAMMO 10:38
PROVIDERS: ATTEND Family Medicine
DX: Z12.31 Encounter for screening mammogram for malignant neoplasm of breast (principal); K40.90 Unilateral inguinal hernia, without obstruction or gangrene, not specified as recurrent; R10.2 Pelvic and perineal pain

== ENCOUNTER 2020-03-29 05:30 | Day surgery (SDC) | payer MEDICARE ==
--- NOTE | 2020-03-19 13:32 | RAD ---
EXAM DESCRIPTION: Chest,2 Views CLINICAL HISTORY: preop COMPARISON: CT chest December 27, 2019. CT of the thorax July 12, 2019. FINDINGS: 2 views of the chest. No consolidation, effusion or pneumothorax is demonstrated. Stable hamartoma projecting over the left midlung. The heart and mediastinum are within normal limits. No acute bony pathology. IMPRESSION: No acute process. Electronically signed by: Mike Chow MD 03/19/2020 1:31 PM CDT
[2020-03-29] MEDS ORDERED: LACTATED RINGERS 1,000 ML ONE (06:44)
[2020-03-29] MEDS ORDERED: diphenhydrAMINE HCL 50 MG/ML VIAL ONE (07:00)
[2020-03-29] MEDS ORDERED: PROPOFOL 200 MG/20 ML VIAL IV ONE (07:00)
[2020-03-29] MEDS ORDERED: DEXAMETHASONE INJ 10 MG/ML VIAL ONE (07:00)
[2020-03-29] MEDS ORDERED: MAGNESIUM SULFATE INJ 1 GM/2 ML VIAL ONE (07:00)
[2020-03-29] MEDS ORDERED: METOCLOPRAMIDE HCL INJ 10 MG/2 ML VIAL ONE (07:00)
[2020-03-29] MEDS ORDERED: ceFAZolin SODIUM 1 GM VIAL ONE (07:00)
[2020-03-29] MEDS ORDERED: LIDOCAINE 1% 10 ML VIAL INJ ONE (07:00)
[2020-03-29] MEDS ORDERED: BUPIVACAINE 0.5% W/EPI 30 ML VIAL INJ ONE (07:35)
[2020-03-29] MEDS ORDERED: PANTOPRAZOLE SODIUM IV 40 MG VIAL ONE (08:08)
[2020-03-29] MEDS ORDERED: MIDAZOLAM INJ 2 MG/2 ML VIAL ONE (08:09)
[2020-03-29] MEDS ORDERED: fentaNYL CITRATE INJ 50 MCG/ML 2 ML AMP ONE (08:10)
[2020-03-29] MEDS: PANTOPRAZOLE SODIUM IV 40 MG VIAL IV ONE (08:11)
[2020-03-29] MEDS: BUPIVACAINE 0.5% W/EPI 30 ML VIAL INJ ONE (08:22)
[2020-03-29] MEDS ORDERED: DEXMEDETOMIDINE HCL 200 MCG/2 ML INJ IV ONE (08:32)
[2020-03-29] MEDS ORDERED: ROCURONIUM BROMIDE 10 MG/ML VIAL ONE (09:07)
[2020-03-29] MEDS ORDERED: SUGAMMADEX SODIUM 200 MG/2 ML VIAL IV ONE (09:07)
[2020-03-29] MEDS: LACTATED RINGERS 200 ML IVS ONE (09:39)
--- NOTE | 2020-03-29 09:50 | OP ---
DATE OF PROCEDURE: 03/29/20 PREOPERATIVE DIAGNOSIS: 1. Left inguinal hernia. POSTOPERATIVE DIAGNOSIS: 1. Left inguinal hernia. PROCEDURE: 1. Repair of left inguinal hernia. 2. Left ilioinguinal nerve block for postoperative pain control. SURGEON: Hong Genao MD. ANESTHESIA: General and local. FINDINGS: She had a large fatty hernia on her round ligament, also another direct hernia laterally through the muscle. COMPLICATIONS: None. ESTIMATED BLOOD LOSS: Minimal. CONDITION: Stable. PLAN: Discharge. INDICATION: As stated. PROCEDURE: General anesthesia was induced. She was prepped and draped in sterile fashion. 0.5% Marcaine with epinephrine was used at the incision site. An ilioinguinal nerve block was performed using 3 cc of 0.5% Marcaine with epinephrine were used based on anatomic landmarks. We then made our incision. Subcutaneous tissues were taken down. A subcutaneous vessel was cauterized. The external oblique aponeurosis was identified. We could see the fatty tissue bulging behind it. It was opened up along its fibers to the external ring. The fatty hernia contents were isolated. The round ligament was divided and tied. This was then reduced. Laterally, we could see fat coming through the muscle in direct hernia fashion, so as we dissected the preperitoneal plane, we included this area. A large PHS mesh was used. It was laid out nicely in the preperitoneal plane using retraction and keeping the epigastric vessels anteriorly. This covered the lateral defect. It was trimmed inferiorly. It was secured to the tubercle and laid out laterally. Some of the muscular defect lateral from the direct hernia was closed with interrupted 2-0 Vicryl suture and the mesh lay over this. The external oblique was then closed with a running 2-0 Vicryl and the wound in two layers. Dressing was applied. The patient was awakened and taken to Recovery to be discharged. #[id number] cc: Hasmukh Garcia MD [facility]
[2020-03-29] MEDS: LEVALBUTEROL NEBS 1.25 MG/3 ML VIAL NEB ONE (09:55)
[2020-03-29 10:58] VITALS: BP 135/73; TEMP 96.8; O2SAT 94
[2020-03-29] MEDS ORDERED: HYDROcodone 5MG/APAP 325MG 1 EA TAB ONE (12:58)
== END 2020-03-29 10:50 | disposition home or self-care (01) ==
LOC: AMB 05:30
PROVIDERS: ATTEND Surgery
DX: K40.90 Unilateral inguinal hernia, without obstruction or gangrene, not specified as recurrent (principal); I10 Essential (primary) hypertension; I25.10 Atherosclerotic heart disease of native coronary artery without angina pectoris; E07.9 Disorder of thyroid, unspecified; K21.9 Gastro-esophageal reflux disease without esophagitis; J44.9 Chronic obstructive pulmonary disease, unspecified; Z79.82 Long term (current) use of aspirin; Z79.899 Other long term (current) drug therapy
CPT/HCPCS: 00830; 49505; 71046; 80048; 85025; 93005; 94640; J0690; J1100; J1200; J2250; J2765; J3010; J3475; J3490; J7120; J7614

== ENCOUNTER 2020-04-06 11:04 | Emergency (ER) | payer MEDICARE ==
[2020-04-06] MEDS ORDERED: KETOROLAC TROMETHAMINE INJ 30 MG/ML VIAL IM ONE (11:26)
[2020-04-06] MEDS ORDERED: POTASSIUM CHLORIDE ELIXIR 20 MEQ/15 ML UD PO ONE (12:16)
--- NOTE | 2020-04-06 12:53 | ED.PDOC ---
History of Present Illness - General Chief Complaint: Post Op Problems Time Seen by Provider: 04/06/20 11:25 Source: patient Exam Limitations: no limitations - History of Present Illness Initial Comments: The patient is a 69-year-old female presenting to the emergency room secondary to pain with inguinal hernia operative site. The patient had a repair done with Dr. Genao about a week ago. She moved yesterday and had sudden pain there and has had some pain there since. No evidence of dehiscence. No definite palpable evidence of any hernia recurrence. No evidence of any bowel obstruction. No evidence of any infection at the operative site at this time. No generalized peritonitis. No vomiting. No diarrhea. No blood in the stool. She has had some mild constipation. No drainage from the site. No extending erythema. Timing/Duration: 24 hours Severity: moderate Improving Factors: immobilization Worsening Factors: movement Associated Symptoms: denies symptoms Allergies/Adverse Reactions: Allergies Latex Adverse Reaction (Mild, Verified 08/15/19 13:04) Rash Home Medications: Ambulatory Orders Acetaminophen [Acetaminophen ER] 650 mg PO PRN PRN 09/24/18 Lisinopril & Hydrochlorothiazi [Lisinopril/Hctz 20-12.5 mg] 1 tab PO DAILY 09/24/18 Albuterol Sulfate [Ventolin Hfa] 108 mcg IN PRN PRN 08/15/19 Isosorbide Dinitrate 30 mg PO DAILY 08/15/19 Levothyroxine Sodium 137 mcg PO ACBK 08/15/19 Nitroglycerin 0.4 mg SL PRN PRN 08/15/19 Aspirin [Aspirin Low Strength] 81 mg PO DAILY 03/19/20 Cholecalciferol [Vitamin D3] 1,000 unit PO DAILY 03/19/20 Potassium 99 mg PO DAILY 03/19/20 Fluticasone Furoate (Inhalatio [Arnuity Ellipta] 50 mcg IN DAILY 04/06/20 Metoprolol Succinate [Metoprolol Succinate ER] 50 mg PO DAILY 04/06/20 Review of Systems - Review of Systems Constitutional: States: no symptoms reported EENTM: States: no symptoms reported Respiratory: States: no symptoms reported Cardiology: States: no symptoms reported Gastrointestinal/Abdominal: States: see HPI Genitourinary: States: no symptoms reported Musculoskeletal: States: no symptoms reported Skin: States: no symptoms reported Neurological: States: no symptoms reported Endocrine: States: no symptoms reported All other Systems: No Change from Baseline Past Medical History (General) - Patient Medical History Hx Seizures: No Hx Stroke: No Hx Dementia: No Hx Asthma: No 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" Hx Cardiac Disorders: Yes - stent Hx Congestive Heart Failure: No Hx Pacemaker: No Hx Hypertension: No Hx Thyroid Disease: Yes - mass Hx Diabetes: No Hx Gastroesophageal Reflux: No Hx Renal Disease: No Hx Cancer: Yes - Mass found on thyroid Hx of HIV: No Hx Hepatitis C: No Hx MRSA: No Surgical History: other - Vaccination History Hx Tetanus, Diphtheria Vaccination: Yes Hx Influenza Vaccination: Yes Hx Pneumococcal Vaccination: Yes - Social History Hx Tobacco Use: No Hx Chewing Tobacco Use: No Hx Alcohol Use: No Hx Substance Use: No Hx Substance Use Treatment: No Hx Depression: No Hx Physical Abuse: No Hx Emotional Abuse: No Hx Suspected Abuse: No - Female History Patient : No Family Medical History - Family History Mother Family History: No Known Living Status: Cause of : [place] Hx Family Asthma: No Hx Family Congestive Heart Failure: No Physical Exam - Physical Exam General Appearance: Alert, Anxious, No apparent distress Eye Exam: bilateral normal Ears, Nose, Throat: hearing grossly normal, normal pharynx Neck: full range of motion, supple Respiratory: lungs clear, normal breath sounds, no respiratory distress, no accessory muscle use Cardiovascular/Chest: normal peripheral pulses, no edema, other - Regular rate Peripheral Pulses: radial,right: 2+, radial,left: 2+ Gastrointestinal/Abdominal: soft, other - See history of present illness. Rectal Exam: deferred Back Exam: no CVA tenderness, no vertebral tenderness Extremity: normal range of motion, non-tender, normal inspection, no pedal edema, normal capillary refill Neurologic: life skills coordinator II-XII nml as tested, alert, normal mood/affect, oriented x 3 Comments: Vital Signs - 24 hr 04/06/20 11:31 Temperature 99.0 F Pulse Rate [ 83 left brachial] Respiratory 20 Rate Blood Pressure 141/110 [left brachial] O2 Sat by Pulse 100 Oximetry Progress - Progress Progress: 04/06/20 12:54 The patient is a 69-year-old female presented emergency room with left lower quadrant abdominal pain surrounding the inguinal hernia repair site. Given the exam, laboratory work and x-ray, I believe the patient likely simply strained the site. I see no evidence of any overt infection or obvious operative failure. No evidence of any obstruction. The patient will likely have soreness for the next 4 or 5 days. I would recommend that she call her general surgeon on Wednesday to give him an update. The patient does have very mild hypokalemia and was given a dose of potassium here. This needs to be followed as an outpatient. Additionally the patient does have some constipation. I would recommend that she take MiraLAX 17 g daily for the next week. ER warnings are given for any worsening. [email or web address] theodore [phone] 04/06/20 12:56 - Results/Orders Results/Orders: Acute abdominal series read is delayed secondary to technical difficulties however I see no evidence of perforation or obstruction. Lung may look essentially clear. Again final report is still pending. There is moderate stool consistent with constipation. Laboratory Tests 04/06/20 04/06/20 04/06/20 11:34 11:34 11:34 WBC 6.1 RBC 4.73 Hgb 13.4 Hct 40.4 MCV 85.5 MCH 28.3 MCHC 33.2 RDW 14.5 Plt Count 271 MPV 6.4 L Absolute Neuts (auto) 3.80 Absolute Lymphs (auto) 1.70 Absolute Monos (auto) 0.50 Absolute Eos (auto) 0.20 Absolute Basos (auto) 0.10 Neutrophils % 61.5 Lymphocytes % 27.5 Monocytes % 7.4 Eosinophils % 2.8 Basophils % 0.8 Sodium 141 Potassium 3.3 L Chloride 105 Carbon Dioxide 27 Anion Gap 12.3 BUN 10 Creatinine 0.60 BUN/Creatinine Ratio 16.7 Random Glucose 97 Serum Osmolality 280.2 Lactic Acid 0.8 Calcium 9.0 Total Bilirubin 0.7 AST 18 ALT 30 Alkaline Phosphatase 88 Serum Total Protein 7.3 Albumin 3.5 Globulin 3.8 H Albumin/Globulin Ratio 0.9 L Amylase 34 Lipase 25 Departure - Departure Clinical Impression: Hypokalemia, Postoperative abdominal pain Constipation Qualifiers: Constipation type: drug induced constipation Qualified Code(s): K59.03 - Drug induced constipation Disposition: Discharge to Home or Self Care Condition: Fair Departure Forms: ED Discharge - Pt. Copy, Patient Portal Self Enrollment Instructions: DI for Postoperative Pain Diet: other Activity: other Referrals: Hasmukh Garcia MD [Primary Care Provider] - 1-2 Weeks Home Medications: Ambulatory Orders Acetaminophen [Acetaminophen ER] 650 mg PO PRN PRN 09/24/18 Lisinopril & Hydrochlorothiazi [Lisinopril/Hctz 20-12.5 mg] 1 tab PO DAILY 09/24/18 Albuterol Sulfate [Ventolin Hfa] 108 mcg IN PRN PRN 08/15/19 Isosorbide Dinitrate 30 mg PO DAILY 08/15/19 Levothyroxine Sodium 137 mcg PO ACBK 08/15/19 Nitroglycerin 0.4 mg SL PRN PRN 08/15/19 Aspirin [Aspirin Low Strength] 81 mg PO DAILY 03/19/20 Cholecalciferol [Vitamin D3] 1,000 unit PO DAILY 03/19/20 Potassium 99 mg PO DAILY 03/19/20 Fluticasone Furoate (Inhalatio [Arnuity Ellipta] 50 mcg IN DAILY 04/06/20 Metoprolol Succinate [Metoprolol Succinate ER] 50 mg PO DAILY 04/06/20 Additional Instructions: The patient is a 69-year-old female presented emergency room with left lower quadrant abdominal pain surrounding the inguinal hernia repair site. Given the exam, laboratory work and x-ray, I believe the patient likely simply strained the site. I see no evidence of any overt infection or obvious operative failure. No evidence of any obstruction. The patient will likely have soreness for the next 4 or 5 days. I would recommend that she call her general surgeon on Wednesday to give him an update. The patient does have very mild hypokalemia and was given a dose of potassium here. This needs to be followed as an outpatient. Additionally the patient does have some constipation. I would recommend that she take MiraLAX 17 g daily for the next week. ER warnings are given for any worsening.
--- NOTE | 2020-04-06 12:57 | RAD ---
EXAM DESCRIPTION: Abdomen Series CLINICAL HISTORY: new left lower quadrant pain 5d postop hernia repair COMPARISON: Chest two views March 19, 2020, CT chest July 12, 2019 FINDINGS: The single view of the chest shows an ill-defined nodular density in the left midlung field, unchanged since prior chest x-ray and CT scan. The heart size and pulmonary vasculature are normal. The supine and upright abdominal radiographs show a non-obstructive bowel gas pattern. No pneumoperitoneum, air fluid levels, or mass effect. No radiopaque calculi or calcifications are noted. There is no evidence of hepatosplenomegaly. No clinically significant osseous abnormalities noted. IMPRESSION: Stable left midlung field nodule. Non-obstructive bowel gas pattern. Electronically signed by: Joana Rankin MD 04/06/2020 12:55 PM CDT
[2020-04-06 13:17] VITALS: BP 152/88; TEMP 97.9; O2SAT 93
== END 2020-04-06 13:10 | disposition home or self-care (01) ==
LOC: ER 11:04
DX: E87.6 Hypokalemia (principal); R10.32 Left lower quadrant pain; G89.18 Other acute postprocedural pain; K59.03 Drug induced constipation
CPT/HCPCS: 36415; 74019; 80053; 82150; 83605; 83690; 85025; J1885

== ENCOUNTER → 2020-04-22 | Outpatient (CLI) | payer MEDICARE ==
--- NOTE | 2020-04-22 15:45 | CT ---
EXAM DESCRIPTION: Abdomen/Pelvis w/Contrast CLINICAL HISTORY: 69 years Female, LEFT LOWER QUADRANT PAIN COMPARISON: CT abdomen pelvis dated 07/19/2019. TECHNIQUE: Contiguous 3 mm axial images were obtained from the lung bases to the level of the proximal femora after the administration of intravenous and oral contrast. Sagittal and coronal reconstructions were reviewed. FINDINGS: THORAX: The imaged lower thorax demonstrates no gross abnormality. LIVER: Stable 4 cm ill-defined low-density lesion in hepatic segment 5. GALLBLADDER: Grossly unremarkable. PANCREAS: Appears normal with no cystic or solid lesions. SPLEEN: Normal ADRENAL GLANDS: Normal with no nodules or masses. KIDNEYS: Both kidneys enhance symmetrically with no hydronephrosis or nephrolithiasis or perinephric fluid collections. Low-density lesions some of which are too small to characterize are again identified throughout both kidneys. The visualized ureters appear grossly unremarkable. STOMACH: Not well distended limiting detailed evaluation. SMALL BOWEL: The small bowel loops demonstrate variable degrees of distention with no abnormal dilatation or other signs to suggest bowel obstruction. LARGE BOWEL: Majority of the colon is not well-distended limiting detailed evaluation. Views scattered diverticuli are noted. The appendix is not definitively visualized. No evidence of free intraperitoneal air or fluid. RETROPERITONEUM: The abdominal aorta is nonaneurysmal with moderate to severe atherosclerosis. The inferior vena cava is normal in size and caliber. No abnormally enlarged retroperitoneal lymph nodes are identified. URINARY BLADDER:The urinary bladder is well-distended with no gross abnormality. Uterus and ovaries are surgically absent. ADDITIONAL FINDINGS: 2.7 x 3.9 x 9.6 cm rim enhancing lesion is identified in the left lower quadrant abdominal wall musculature adjacent to the rectus muscle. There is overlying inflammatory stranding. Findings are concerning for an abscess. BONES: Mild degenerative changes are identified in the visualized bones.No evidence of osteophytic or osteoblastic lesions. IMPRESSION: 1. 2.7 x 3.9 x 9.6 cm rim enhancing lesion is identified in the left lower quadrant abdominal wall musculature adjacent to the rectus muscle. There is overlying inflammatory stranding. Findings are concerning for an abscess. 2. Stable indeterminate 4 cm low-density lesion in hepatic segment 5. This exam was performed according to our departmental dose-optimization program, which includes automated exposure control, adjustment of the mA and/or kV according to patient size and/or use of iterative reconstruction technique. Electronically signed by: Doreen Padron MD 04/22/2020 3:43 PM CDT
== END ==
LOC: YCFC.O 12:09
PROVIDERS: ATTEND Family Medicine
DX: K76.9 Liver disease, unspecified (principal); M62.9 Disorder of muscle, unspecified; E87.6 Hypokalemia; N89.8 Other specified noninflammatory disorders of vagina

== ENCOUNTER → 2020-04-23 | Outpatient (CLI) | payer MEDICARE | LOC: LAB.NP 15:57 | PROVIDERS: ATTEND Surgery | DX: T81.40XD Infection following a procedure, unspecified, subsequent encounter (principal) ==

== ENCOUNTER → 2020-05-07 | Outpatient (CLI) | payer MEDICARE | LOC: YCFC.O 10:16 | PROVIDERS: ATTEND Family Medicine | DX: I10 Essential (primary) hypertension (principal); E06.3 Autoimmune thyroiditis; E78.5 Hyperlipidemia, unspecified ==

== ENCOUNTER → 2020-08-06 | Outpatient (CLI) | payer MEDICARE ==
--- NOTE | 2020-08-07 12:21 | CT ---
Procedure: CT LUNG SCREENING Exam Date: August 06, 2020 Ordering Provider: Hasmukh Garcia Clinical Indication: PERSONAL HISTORY OF TOBACCO DEPENDENCE smoking cessation 6 months. 15 Pack-years. This patient meets eligibility criteria for low-dose CT lung cancer screening. Comparison: CT scan without IV contrast, regular dose, December 27. Technique: Using a multislice scanner, sequential helical axial imaging was obtained in the thorax, 2.5 mm thickness, 2.5 mm separation, from the level of the thoracic inlet through the lung bases without IV contrast. A low dose protocol was utilized for BMI greater than 30: BMI: 37. CTDI: 2.92 mGy. 120. kVp. 45 mA. DLP 110 mGy-cm. 2D sagittal and coronal reconstructed images, 6.0 mm thickness, were obtained. This exam was performed according to our departmental dose optimization program which includes use of automated exposure control, adjustment of the mA and/or kV according to patient size and/or use of iterative reconstruction technique. Nodule measurements under 10 mm are given as mean value of 3 axes diameters. FINDINGS: Lungs and large airways: [place] circumscribed subpleural solid nodule in the lateral base of the posterior segment left upper lobe mean diameter 8.3 mm stable since the prior study. No calcifications. Axial series 2, image [id number]. Stable groundglass nodule right apex measuring 3 mm, on image 2/21. Stable subpleural 3 mm nodule medial posterior recess right lower lobe on image 2/103. Bibasilar posterior dependent atelectasis. Subpleural nodule 3 mm anterior lower segment left lower lobe on image 2/81. Stable 3.5 mm nodule superior right lower lobe posterior to the major fissure on image 2/73. Bilateral anterior superior segment right lower lobe subpleural solid nodule 3 mm on image 2/68. Bilateral pleural-parenchymal scarring. No new abnormal nodule or mass. No focal or new infiltrate. Pleura and space: Prominent epicardial fat pad on the left. Stable right pleural base calcification on the medial hemidiaphragm. Stable focal thickening abutting the upper lobes. No acute process. Mediastinum and meme: evaluation limited by low dose technique and lack of IV contrast. Small lymph nodes with no dominant solid mass. Heart and great vessels: Coronary artery calcifications unchanged. Minimal pericardial thickening stable. Atherosclerotic calcifications in the aortic arch and descending thoracic aorta. Chest wall, lower neck, axillae: Evaluation also limited by same factors as described above. Normal size axillary nodes. Upper abdomen: Evaluation limited by low-dose technique. No free air or free fluid in the included peritoneal space. Gallbladder partially visualized. Normal size of the spleen and adrenal glands. Splenic calcifications normal density of the adrenals. No free fluid or free air. Osseous structures: Evaluation limited by low dose MIP technique. Spondylosis midthoracic spine and arthrosis shoulder clavicle sternal joints no change from the prior study. IMPRESSION: 1. Multiple bilateral pulmonary nodules with the largest having a mean diameter of 8.3 mm. All nodules are stable since the prior study with no new nodules or mass. No acute infiltrate. [facility] Best Practice Recommendations: please see below for Lung RADS category and FOLLOW-UP.* *Lung RADS category CATEGORY 2- Nodules with a very low likelihood (less than 1%) of becoming a clinically active cancer due to size or lack of growth. Nodules: Perifissural nodule(s) < 10 mm. (526mm3). Solid or part solid nodule(s) less than 6mm (113.1 mm3), new solid nodule less than 4mm (33.5 mm3). Ground glass nodule(s) less than 30mm (24517.2 mm3) or unchanged or slow growing ground glass nodule 30mm or greater. Cat 3 or 4 nodule unchanged for 3 or more months. FOLLOW-UP: Continue annual screening with a Low Dose Chest CT in 12 months for re-evaluation. Electronically signed by: Anderson Meredith MD 08/07/2020 12:20 PM CDT
== END ==
LOC: LAB.O 09:48
PROVIDERS: ATTEND Family Medicine
DX: Z12.2 Encounter for screening for malignant neoplasm of respiratory organs (principal); Z87.891 Personal history of nicotine dependence; R91.8 Other nonspecific abnormal finding of lung field; E78.5 Hyperlipidemia, unspecified; E06.3 Autoimmune thyroiditis; I10 Essential (primary) hypertension
CPT/HCPCS: 36415; 80048; 80061; 84439; 84443; 84481; 85025; G0297

== ENCOUNTER → 2020-09-16 | Outpatient (CLI) | payer MEDICARE ==
--- NOTE | 2020-09-16 10:18 | CT ---
PROVIDED CLINICAL HISTORY/REASON FOR EXAM: HEAD INJURY, TAKING ASA TECHNIQUE: Volumetric CT data of the brain was obtained without intravenous contrast. This exam was performed according to our departmental dose-optimization program, which includes automated exposure control, adjustment of the mA and/or kV according to patient size and/or use of iterative reconstruction technique. COMPARISON: None available. FINDINGS: The ventricles and sulci are normal, without hydrocephalus or significant atrophy. Septum pellucidum and third ventricle are midline. No acute infarction is evident by CT. No acute hemorrhage is present. No mass or mass effect is present. The calvaria and soft tissues are unremarkable. The visualized paranasal sinuses are unremarkable. IMPRESSION: No acute intracranial abnormality. Electronically signed by: Mariano Sage MD 09/16/2020 10:17 AM [facility]
== END ==
LOC: LAB.O 09:25
PROVIDERS: ATTEND Family Medicine
DX: S09.90XA Unspecified injury of head, initial encounter (principal); R42 Dizziness and giddiness; R60.0 Localized edema; R35.0 Frequency of micturition

== ENCOUNTER → 2020-10-18 | Outpatient (CLI) | payer MEDICARE | LOC: YCFC.O 09:13 | PROVIDERS: ATTEND Family Medicine | DX: E03.9 Hypothyroidism, unspecified (principal) ==

== ENCOUNTER → 2020-11-06 | Outpatient (CLI) | payer MEDICARE ==
--- NOTE | 2020-11-06 12:59 | RAD ---
EXAM: Hand,Right 3 Views INDICATION: 70 years Female, ARTHRITIS COMPARISON: None available FINDINGS: 3 views of the right hand were performed. Diffuse osteopenia. No fracture or dislocation. Moderate to severe arthritic changes in the right hand with areas of joint space narrowing, subchondral sclerosis, and osteophyte formation, most notably at the first carpometacarpal joint and in the distal greater than proximal interphalangeal joints of fingers 2 through 4. Gullwing type deformities are noted at the DIP joints of fingers 2, 3, and 5. No periosteal reaction or definite osseous erosions. No significant subchondral cystic changes identified. Soft tissue edema in the fingers. IMPRESSION: Moderate to severe arthritic changes in the right hand as described above. Electronically signed by: Camilla Bae MD 11/06/2020 12:57 PM [facility]
== END ==
LOC: YCFC.O 09:26
PROVIDERS: ATTEND Family Medicine
DX: M19.041 Primary osteoarthritis, right hand (principal)